=== PATIENT | female | born 1965 | race Caucasian/White ===

== ENCOUNTER 2020-10-11 17:49 | Emergency (ER) | payer OTHER ==
--- NOTE | 2020-10-11 19:00 | EDM.PDOC ---
ED HPI GENERAL MEDICAL PROBLEM - General Chief Complaint: Neuro Symptoms/Deficits Stated Complaint: difficulty swallowing/hallucination Time Seen by Provider: 10/11/20 18:24 Source of Information: Reports: Patient, RN Notes Reviewed History Limitations: Reports: No Limitations - History of Present Illness INITIAL COMMENTS - FREE TEXT/NARRATIVE: Patient is a 54-year-old female presenting to the emergency department with complaints of difficulty swallowing for the last 3 weeks, as well as an episode 2 nights ago where she thought she saw the shadow of a cat walk into her laundry room. She states for last few weeks, she has been having difficulty swallowing her pills. She used only have to break them in half, but now she has to crush them in order to swallow them. She has no difficulty swallowing fluids. States she does not choke on water when she drinks that. 2 evenings ago, she states that she was walking into her laundry room and thought she saw the shadow of a black cat. When she looked again it was gone. He also complains of having difficulty sleeping causing increased fatigue recently. She has had no dizziness, headaches, vision changes. Denies any recent head injuries. He denies any difficulty with speech or any unilateral deficits. She has had no fever or chills. Patient moved to [place] from [place] at the end of last year. She has not establish care with a primary care provider here in [place]. she called her primary care provider in [place], and he recommended that she come here for a neurologic work-up. She states that she has scheduled a flight back to [place] to see her primary care provider on October 19. She has a history of Graves' disease and was on the Tapazole up until last year which time she was weaned off of it. He is currently taking no prescribed medications. She is concerned that her Graves' disease could be recurring. - Related Data Allergies Allergy/AdvReac Type Severity Reaction Status Date / Time tomato Allergy Itching Verified 10/11/20 18:08 Home Meds: Home Meds Calcium Carbonate [Calcium] 10/11/20 [History] Cholecalciferol (Vitamin D3) [Vitamin D3] 10/11/20 [History] Multivitamin [Daily Multiple Vitamin] 10/11/20 [History] Tumeric. 10/11/20 [History] Past Medical History Endocrine/Metabolic History: Reports: Hyperthyroidism - Past Surgical History Female Surgical History: Reports: Tubal Ligation Social & Family History - Family History Family Medical History: No Pertinent Family History - Tobacco Use Tobacco Use Status *Q: Never Tobacco User - Caffeine Use Caffeine Use: Reports: Coffee, Tea - Recreational Drug Use Recreational Drug Use: Yes ED ROS GENERAL - Review of Systems Review Of Systems: See Below Constitutional: Reports: No Symptoms. Denies: Fever, Chills, Weakness HEENT: Reports: Other (difficulty swallowing pills). Denies: Vision Change Respiratory: Reports: No Symptoms Cardiovascular: Reports: No Symptoms Endocrine: Reports: No Symptoms GI/Abdominal: Reports: No Symptoms : Reports: No Symptoms Musculoskeletal: Reports: No Symptoms Skin: Reports: No Symptoms Neurological: Denies: Confusion, Dizziness, Headache, Numbness, Paresthesia, Syncope, Tremors, Trouble Speaking, Difficulty Walking, Weakness Psychiatric: Reports: Hallucinations (thought she saw that shaddow of a cat in her laundry room 2 days ago) Hematologic/Lymphatic: Reports: No Symptoms Immunologic: Reports: No Symptoms ED EXAM, NEURO - Physical Exam Exam: See Below Exam Limited By: No Limitations General Appearance: Alert, WD/WN, No Apparent Distress Eye Exam: Bilateral Eye: PERRL Throat/Mouth: Normal Inspection, Normal Lips, Normal Teeth, Normal Gums, Normal Oropharynx, Normal Voice, No Airway Compromise Respiratory/Chest: No Respiratory Distress, Lungs Clear, Normal Breath Sounds, No Accessory Muscle Use, Chest Non-Tender Cardiovascular: Normal Peripheral Pulses, Regular Rate, Rhythm, No Edema, No Gallop, No JVD, No Murmur, No Rub GI/Abdominal: Normal Bowel Sounds, Soft, Non-Tender, No Organomegaly, No Distention, No Abnormal Bruit, No Mass Neurological: Alert, Normal Mood/Affect, Normal Dorsiflexion, CN II-XII Intact, Normal Plantar Flexion, Normal Gait, Normal Reflexes, No Motor/Sensory Deficits, Oriented x 3 Psychiatric: Normal Affect, Normal Mood Skin Exam: Warm, Dry, Intact, Normal Color, No Rash Course - Vital Signs Last Recorded V/S: Last Vital Signs Temp 97.6 F 10/11/20 18:03 Pulse 70 10/11/20 18:03 Resp 16 10/11/20 18:03 BP 136/85 10/11/20 18:03 Pulse Ox 96 10/11/20 18:03 - Orders/Labs/Meds Orders: Active Orders 24 hr Category Date Time Status Head wo Cont [CT] Stat Exams 10/11/20 18:39 Taken Labs: Laboratory Tests 10/11/20 10/11/20 Range/Units 18:49 18:49 WBC 3.39 L (3.98-10.04) K/mm3 RBC 4.84 (3.98-5.22) M/mm3 Hgb 14.2 (11.2-15.7) gm/dl Hct 43.0 (34.1-44.9) % MCV 88.8 (79.4-94.8) fl MCH 29.3 (25.6-32.2) pg MCHC 33.0 (32.2-35.5) g/dl RDW Std Deviation 42.0 (36.4-46.3) fL Plt Count 201 (182-369) K/mm3 MPV 10.7 (9.4-12.3) fl Neut % (Auto) 44.2 (34.0-71.1) % Lymph % (Auto) 45.7 (19.3-51.7) % [place] % (Auto) 6.5 (4.7-12.5) % Eos % (Auto) 2.7 (0.7-5.8) Baso % (Auto) 0.9 (0.1-1.2) % Neut # (Auto) 1.50 L (1.56-6.13) K/mm3 Lymph # (Auto) 1.55 (1.18-3.74) K/mm3 [place] # (Auto) 0.22 L (0.24-0.36) K/mm3 Eos # (Auto) 0.09 (0.04-0.36) K/mm3 Baso # (Auto) 0.03 (0.01-0.08) K/mm3 Sodium 139 (136-145) mEq/L Potassium 4.1 (3.5-5.1) mEq/L Chloride 104 (98-107) mEq/L Carbon Dioxide 27 (21-32) mEq/L Anion Gap 12.1 (5-15) BUN 14 (7-18) mg/dL Creatinine 0.8 (0.55-1.02) mg/dL Est Cr Clr Drug Dosing 65.73 mL/min Estimated GFR (MDRD) > 60 (>60) mL/min BUN/Creatinine Ratio 17.5 (14-18) Glucose 85 (74-106) mg/dL Calcium 8.7 (8.5-10.1) mg/dL Magnesium 2.2 (1.8-2.4) mg/dl Total Bilirubin 0.5 (0.2-1.0) mg/dL AST 15 (15-37) U/L ALT 30 (14-59) U/L Alkaline Phosphatase 43 L (46-116) U/L C-Reactive Protein <0.2 (<1.0) mg/dL Total Protein 6.8 (6.4-8.2) g/dl Albumin 3.7 (3.4-5.0) g/dl Globulin 3.1 gm/dL Albumin/Globulin Ratio 1.2 (1-2) Free T4 0.86 (0.76-1.46) ng/dL TSH 3rd Generation 1.263 (0.358-3.74) uIU/mL - Re-Assessments/Exams Free Text/Narrative Re-Assessment/Exam: Patient a 54-year-old female presenting to the emergency department with complaints of difficulty swallowing over the course of the last few weeks as well as an episode 2 days ago where she thought she saw a black cat walking into her laundry room. She contacted her primary care provider in [place] and they requested that she have a neurologic evaluation done in the emergency department. Her neurologic exam is grossly unremarkable. She has no focal neurologic deficits. Pupils equal and reactive. She has no difficulty with speech or ambulation. She is scheduled to see them on October 19. Patient has a history of Graves' disease and there is some concern that it could be returning. I have ordered a CBC, CMP, CRP, magnesium, free T4, TSH, and a CT scan of the head. 10/11/20 19:51 Her overall work-up was unremarkable. CT scan of the head showed no evidence for acute transcortical infarct, acute intracranial hemorrhage, or mass-effect. Hematology was found to be normal. T4 and TSH are both within the normal ranges. Patient states that she believes they are going to do an ultrasound of her thyroid when she sees her primary care provider in October to see if her thyroid could be causing her difficulty swallowing. We will discharge her home. She will be provided a copy of her head CT. Her lab results are included in her discharge packet. Discharge instructions as documented. Departure - Departure Time of Disposition: 19:48 Disposition: Home, Self-Care 01 Condition: Good Clinical Impression: Hallucination, visual Swallowing difficulty Qualifiers: Dysphagia type: unspecified Qualified Code(s): R13.10 - Dysphagia, unspecified - Discharge Information *PRESCRIPTION DRUG MONITORING PROGRAM REVIEWED*: No *COPY OF PRESCRIPTION DRUG MONITORING REPORT IN PATIENT CHRIS: No Referrals: PCP,None [Primary Care Provider] - Forms: ED Department Discharge Additional Instructions: You were seen in the emergency department today for evaluation with regards to difficulty swallowing over the course the last few weeks as well as an episode of thinking you saw a cat in your laundry room. Blood work and a CT scan of your head were completed. Your work-up was normal. There is no signs of bleeding or stroke within your brain. Your neurologic exam was also found to be normal. All of your labs were normal. Your thyroid hormone as well as your t hyroid-stimulating hormone were both normal. A copy of your lab work is included in this discharge packet. You have also been provided a copy of the the report of your CT scan of your head. Recommend that you keep your appointment with your primary care provider as currently scheduled. Return to the ER as needed. Sepsis Event Note (ED) - Evaluation Sepsis Screening Result: No Definite Risk - Focused Exam Vital Signs: Vital Signs Temp Pulse Resp BP Pulse Ox 10/11/20 18:03 97.6 F 70 16 136/85 96 - My Orders Last 24 Hours: My Active Orders 10/11/20 18:39 Head wo Cont [CT] Stat - Assessment/Plan Last 24 Hours: My Active Orders 10/11/20 18:39 Head wo Cont [CT] Stat
--- NOTE | 2020-10-12 08:38 | CT ---
PROCEDURE INFORMATION: Exam: CT Head Without Contrast Exam date and time: 10/11/2020 6:50 PM Age: 54 years old Clinical indication: Other: Difficulty swallowing/ hallucinations TECHNIQUE: Imaging protocol: Computed tomography of the head without contrast. Radiation optimization: All CT scans at this facility use at least one of these dose optimization techniques: automated exposure control; mA and/or kV adjustment per patient size (includes targeted exams where dose is matched to clinical indication); or iterative reconstruction. COMPARISON: No relevant prior studies available. FINDINGS: Brain: Age-related involutional changes and chronic microvascular ischemic disease. No evidence for acute transcortical infarct. No mass effect or midline shift. No extra-axial collection. No acute intracranial hemorrhage. Basal cisterns are patent. Cerebral ventricles: No ventriculomegaly. Bones/joints: Unremarkable. No acute fracture. Paranasal sinuses: Visualized sinuses are unremarkable. No fluid levels. Mastoid air cells: Visualized mastoid air cells are well aerated. Soft tissues: Unremarkable. IMPRESSION: No evidence for acute transcortical infarct, acute intracranial hemorrhage, or mass effect. Thank you for allowing us to participate in the care of your patient. Dictated and Authenticated by: Henry Martinez MD 10/11/2020 8:21 PM Central Time ([place] & [place]) [facility]
== END 2020-10-11 19:59 | disposition home or self-care (01) ==
LOC: JD.ED 17:49
DX: R13.10 Dysphagia, unspecified (principal); R44.1 Visual hallucinations; Z91.018 Allergy to other foods
CPT/HCPCS: 36415; 70450; 70450-26; 80053; 83735; 84439; 84443; 85025; 86140; 99285-25